=== PATIENT | female | born 1960 | race Caucasian/White ===

== ENCOUNTER 2022-01-10 10:00 | Outpatient (CLI) | payer OTHER, SELFPAY ==
--- NOTE | ~2022-01-10 | XR_ITS ---
XR sacroiliac joints min 3V DATE: 01/10/2022 10:55 INDICATION: Raynaud's syndrome without gangrene TECHNIQUE: AP and bilateral oblique views of the sacroiliac joints COMPARISON: None FINDINGS: No fracture or dislocation, erosive change or ankylosis at the sacroiliac joints. IMPRESSION: No significant abnormality of the sacroiliac joints Reviewed, dictated and finalized at [facility]. Reviewed, dictated and finalized at [facility]. TRACER
--- NOTE | ~2022-01-10 | XR_ITS ---
XR foot LT standing 2V DATE: 01/10/2022 10:55 INDICATION: Raynaud's syndrome without gangrene TECHNIQUE: AP and lateral views COMPARISON: None FINDINGS: There is plantar and posterior calcaneal enthesopathy. There are osteoarthritic changes at the tarsal and tarsometatarsal joints. No recent fracture, dislocation, periosteal reaction or bone destruction. No acro osteolysis is noted . IMPRESSION: Polyarticular arthritis Plantar and posterior calcaneal enthesopathy Reviewed, dictated and finalized at location [facility]. RATORY SECRETARY
--- NOTE | ~2022-01-10 | XR_ITS ---
XR hand BI arthritis min 3V DATE: 01/10/2022 10:54 INDICATION: Osteoarthritis TECHNIQUE: 3 views of each hand COMPARISON: None FINDINGS: There is mild osteoarthritis at the right third metacarpophalangeal joint, left first carpo metacarpal and metacarpophalangeal joints and multiple bilateral interphalangeal joints, including mi ld joint space narrowing and particular spurring. No erosive change or chondrocalcinosis. No fracture, dislocation, periosteal reaction or bone destruction. IMPRESSION: Mild polyarticular osteoarthritis Reviewed, dictated and finalized at location [facility]. ORT DIRECTOR
--- NOTE | ~2022-01-10 | XR_ITS ---
XR foot RT standing 2V DATE: 01/10/2022 10:55 INDICATION: Raynaud's syndrome without gangrene TECHNIQUE: AP and lateral views COMPARISON: None FINDINGS: Plantar and posterior calcaneal enthesopathy. There is osteoarthritis at the tarsal joints. Mild first metatarsophalangeal osteoarthritis. No fracture or dislocation, periosteal reaction or bone destruction. No acral osteolysis is noted. IMPRESSION: Plantar and posterior calcaneal enthesopathy Osteoarthritis Reviewed, dictated and finalized at location [facility]. GE CONTRACTOR
== END 2022-01-10 10:01 | disposition home or self-care (01) ==
LOC: CHSIMG 10:03
PROVIDERS: PCP Family Medicine; Visit Provider Internal Medicine
DX: I73.00 Raynaud's syndrome without gangrene (principal); M19.90 Unspecified osteoarthritis, unspecified site; Z71.89 Other specified counseling; Z79.899 Other long term (current) drug therapy
CPT/HCPCS: 72202; 73130; 73620